=== PATIENT | male | born 2000 | race African-American/Black ===

== ENCOUNTER 2022-05-30 21:22 | Emergency (ER) | payer MEDICAID, OTHER ==
[~2022-05-30] VITALS: Ht 193 cm; Wt 84.8 kg
[2022-05-30] MEDS ORDERED: IBUPROFEN 800MG TABLET PO ONE (23:45)
[2022-05-30 23:52] VITALS: BP 116/78
[2022-05-31] MEDS ORDERED: IBUP-2030 MT (01:09)
== END 2022-05-31 01:35 | disposition home or self-care (01) ==
LOC: ER 21:22
DX: S20.211A Contusion of right front wall of thorax, initial encounter (principal); S60.221A Contusion of right hand, initial encounter; Y08.89XA Assault by other specified means, initial encounter; Y93.9 Activity, unspecified; Y92.9 Unspecified place or not applicable
CPT/HCPCS: 29125; 71101; 73130; 99283; A4565